=== PATIENT | male | born 1955 | race African-American/Black ===

== ENCOUNTER 2020-02-16 13:03 | Emergency (ER) | payer OTHER ==
[2020-02-16 13:12] VITALS: BP 145/64
--- NOTE | 2020-02-16 13:21 | ED Physician Documentation ---
PD HPI UPPER EXT INJURY - Stated complaint Stated Complaint: RT WRIST SWELLING - Chief complaint Chief Complaint: Ext Problem - History obtained from History obtained from: Patient - History of Present Illness Location: Right (He hit his anterior wrist on a bedpost at home earlier today, there is a swollen bruised area and he is worried about a blood clot.) Review of Systems Constitutional: reports: Reviewed and negative Eyes: reports: Reviewed and negative Ears: reports: Reviewed and negative PD PAST MEDICAL HISTORY - Allergies Allergies/Adverse Reactions: Allergies Allergy/AdvReac Type Severity Reaction Status Date / Time No Known Drug Allergies Allergy Verified 02/16/20 13:13 PD ED PE NORMAL - Vitals Vital signs reviewed: Yes - General General: Alert and oriented X 3, No acute distress - Extremities Extremities: Other (There is a 2 cm diameter area of ecchymosis on the ric- ulnar right wrist without bony tenderness or limited range of motion. Focused sonography shows compressible veins in the area.) - Neuro Neuro: Alert and oriented X 3, Normal speech Results - Vitals Vitals: Vital Signs - 24 hr 02/16/20 13:09 Temperature 37.2 C Heart Rate 83 Respiratory 16 Rate Blood Pressure 145/64 H O2 Saturation 98 Departure - Departure Disposition: 01 Home, Self Care Clinical Impression: Contusion of right wrist, initial encounter Condition: Good Record reviewed to determine appropriate education?: Yes Instructions: ED Contusion Soft Tissue Comments: Ice and Ibuprofen as needed, return if worsening.
== END 2020-02-16 13:36 | disposition home or self-care (01) ==
LOC: ED 13:03
DX: S60.211A Contusion of right wrist, initial encounter (principal); W22.03XA Walked into furniture, initial encounter
CPT/HCPCS: 99281; 99282